=== PATIENT | male | born 1990 ===

== ENCOUNTER 2019-03-08 09:15 | Emergency (ER) | payer OTHER ==
[2019-03-08 09:28] VITALS: BP 103/69
[2019-03-08] MEDS ORDERED: cefTRIAXone VIAL(*) 1,000 MG VIAL IM ONE (09:36)
[2019-03-08] MEDS ORDERED: Lidocaine 1% INJ* 10 MG/ML 30 ML SDV INJ ONE (09:47)
[2019-03-08] MEDS ORDERED: Lidocaine 1% MPF ** 5 ML VIAL INJ ONE (09:51)
--- NOTE | 2019-03-08 10:18 | UC ---
Skin Complaint HPI - HPI Summary HPI Summary: left knee pain / redness x 2 days started as an ingrown hair and getting infected the knee is painful , red, swollen , warm to touch pain is 8 out of 10 , worse with touch , better with elevation no fever, no chills, - History of Current Complaint Chief Complaint: [facility] Time Seen by Provider: 03/08/19 09:24 Stated Complaint: LEFT KNEE COMPLAINT Hx Obtained From: Patient Onset/Duration: Gradual Onset, Lasting Days - 2, Still Present Timing: Constant Onset Severity: Moderate Current Severity: Moderate Pain Intensity: 10 Location: Discrete - left knee Character: Swelling, Pain, Redness, Raised, Painful Aggravating Factor(s): Touch Alleviating Factor(s): Nothing Associated Signs & Symptoms: Positive: Tenderness. Negative: Nausea, Vomiting, Weakness, Shivering, Fever, Chills, Cough, Red Streaks, Joint Swelling - Allergy/Home Medications Allergies/Adverse Reactions: Allergies Allergy/AdvReac Type Severity Reaction Status Date / Time No Known Allergies Allergy Verified 03/08/19 09:28 Home Medications: Home Medications Sertraline* [Zoloft*] 100 mg PO DAILY 03/08/19 [History Confirmed 03/08/19] hydrOXYzine HCl [Hydroxyzine HCl] 50 mg PO DAILY 03/08/19 [History Confirmed ] PMH/Surg Hx/FS Hx/Imm Hx Previously Healthy: Yes - Surgical History Surgical History: None - Family History Known Family History: Negative: Diabetes - Social History Alcohol Use: None Substance Use Type: None Smoking Status (MU): Current Every Day Smoker Amount Used/How Often: 1 ppd Review of Systems All Other Systems Reviewed And Are Negative: Yes Constitutional: Positive: Negative. Negative: Fever, Chills, Fatigue Eyes: Positive: Negative Is Patient Immunocompromised?: No Physical Exam Triage Information Reviewed: Yes Appearance: Well-Appearing, No Pain Distress, Well-Nourished Vital Signs: Initial Vital Signs Temp 99.9 F 03/08/19 09:23 Pulse 81 03/08/19 09:23 Resp 18 03/08/19 09:23 BP 103/69 03/08/19 09:23 Pulse Ox 100 03/08/19 09:23 Vital Signs Reviewed: Yes Eye Exam: Normal Eyes: Positive: Conjunctiva Clear ENT: Positive: Normal ENT inspection, Hearing grossly normal, Pharynx normal Neck: Positive: Supple, Nontender, No Lymphadenopathy Respiratory: Positive: Chest non-tender, Lungs clear, Normal breath sounds Cardiovascular: Positive: RRR, No Murmur, Pulses Normal Skin Exam: Other - left knee : + erythema , swollen, tender to touch , warm to touch Course/Dx - Diagnoses Provider Diagnosis: Cellulitis of left knee Discharge ED - Sign-Out/Discharge Documenting (check all that apply): Patient Departure All imaging exams completed and their final reports reviewed: No Studies - Discharge Plan Condition: Stable Disposition: HOME Prescriptions: Clindamycin Cap(NF) [Clindamycin Cap 300 mg Cap(NF)] 300 mg PO Q6H #40 cap Patient Education Materials: Cellulitis (ED) Referrals: No Primary Care Phys,NOPCP [Primary Care Provider] - 3 Days Additional Instructions: rest, warm compresses, may take Tylenol / Ibuprofen as needed for pain please follow up in 3 days for re-check , may return to the Urgent care if pcp is closed for the holidays - Billing Disposition and Condition Condition: STABLE Disposition: Home
== END 2019-03-08 10:16 | disposition home or self-care (01) ==
LOC: UCCORT 09:15
DX: L03.116 Cellulitis of left lower limb (principal); F17.210 Nicotine dependence, cigarettes, uncomplicated
CPT/HCPCS: 96372; 99212; G0463; J0696